=== PATIENT | male | born 1975 | race Caucasian/White ===

== ENCOUNTER 2020-03-07 09:30 | Outpatient (RCR) | payer OTHER, SELFPAY ==
--- NOTE | 2020-03-01 11:47 | PM.EVENT ---
Event Note Date of Service: 03/01/20 Event Note: 02/26/20: TC from pt, mother is assisting him in SSDI appeal. Pt reports mother was told that Orestes Juniorjoselopatricia from disability told her that he was denied as tech writer put a moderate quantifier on his diagnosis vs a severe quantifier. MRI is completed. 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 Pt is struggling with use of hands-unable to open or close. Dry Dip Worker made a call to [facility] [phone]. They can offer pt an appt for a second opinion for disability determination. They do accept [employer]. Information given to pt so he may schedule an appointment so his appeal may move forward.
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
== END 2020-04-14 23:55 | disposition home or self-care (01) ==
LOC: HO.PAOS 09:30
PROVIDERS: Visit Provider Clinical Nurse Specialist Psychiatric/Mental Health, Adult
DX: F31.4 Bipolar disorder, current episode depressed, severe, without psychotic features (principal); F42.9 Obsessive-compulsive disorder, unspecified; F43.10 Post-traumatic stress disorder, unspecified; Z72.89 Other problems related to lifestyle
CPT/HCPCS: 99204

== ENCOUNTER 2020-03-14 13:45 | Outpatient (RCR) | payer OTHER, SELFPAY | END 2020-03-24 23:55 | disposition home or self-care (01) | LOC: HO.PAOS 13:45 | PROVIDERS: Visit Provider Psychologist | DX: F31.9 Bipolar disorder, unspecified (principal); Z86.59 Personal history of other mental and behavioral disorders | CPT/HCPCS: 90834 ==

== ENCOUNTER 2024-08-26 09:51 | Outpatient (AMB) | payer OTHER, SELFPAY ==
--- NOTE | 2024-08-26 09:52 | A.OFFVIS_ITS ---
Vital Signs 08/26/24 10:08 Height 6 ft 6 in Weight 246 lb BMI 28.4 BP 122/71 Blood Pressure Location Rt brachial Position Sitting Pulse 98 Intake Visit Reasons: infected cyst above eye brow Intake Note: Patient being seen today as urgent appointment for abscess above Lt eyebrow. Treated by [facility] MD in [place] with a course of Doxycycline. Patient c/o: site has improved but would like to have cyst completely excised to prevent recurrence. Reports prone to cysts. Has had cyst removed from tail bone. Currently not on any meds but declined removing meds from hx. Color Receiver Required: No Accompanied by: Self / Same As Patient Allergies cat dander [CATS] Allergy (Unknown, Unverified 08/26/24 09:59) unknown Rabbit [RABBITS] Allergy (Unknown, Unverified 08/26/24 09:59) unknown oxcarbazepine [From TRILEPTAL] Adverse Reaction (Intermediate, Unverified 08/26/24 09:59) joint and muscle pain DUST Allergy (Unknown, Uncoded 08/26/24 09:59) unknown Medication List - Last Reconciled 08/26/24 by Kam Szymanski MD fluvoxamine 100 mg PO BEDTIME hydroxyzine pamoate (Vistaril) 50 - 100 mg (1 - 2 x 50 mg) PO TID PRN 30 days lamotrigine (Lamictal) 25 mg PO DAILY 30 days lamotrigine (Lamictal) 100 mg PO DAILY HPI HPI infected cyst above eye brow: Details: 48-year-old male referred for a cyst on the forehead. He says he has had this for about 4 months. However, he had good through the urgent care about 3 weeks ago because this became swollen and very tender. He was started on antibiotics which helped a lot He says that he wants this cyst removed because of this problem. He has no primary care physician. He states that he sees a therapist for his bipolar disorder. He says he does not take any medications at the all although his records show that he is on Lamictal and Vistaril. [facility], [facility] Medical History (Updated 08/26/24 @ 10:13 by Kam Szymanski MD) Epidermal cyst of face Adenoids, hypertrophy Pilonidal cyst of cleft PTSD (post-traumatic stress disorder) Alcohol use disorder Pilonidal cyst Bilateral rotator cuff dysfunction Obsessive compulsive disorder Bipolar affective disorder, depressed, severe Bilateral hand numbness Bilateral hand pain Bilateral knee pain Degenerative disc disease at L5-S1 level Injury of left shoulder Back pain Nerve pain TBI (traumatic brain injury) Pilonidal cyst Asthma Lyme disease Asthma LVH (left ventricular hypertrophy) Family History Father Basal cell carcinoma Social History Patient Tobacco Use Status: Current someday Tobacco user Cigarettes Per Day: 20 Substance Use Type: Marijuana Review of Systems Const Denies chills and Denies fever(s) Card Denies chest pain, Denies dyspnea and Denies dyspnea on exertion Resp Denies cough, Denies dyspnea and Denies dyspnea on exertion GI Denies hematochezia and Denies change in bowel habits Denies hematuria and Denies difficulty urinating Musc Denies back pain and Denies limited range of motion Neuro Denies focal weakness and Denies convulsions Psych Denies depression and Denies mood swings Physical Exam Const General: comfortable and no acute distress Orientation/consciousness: patient oriented x3 HEENT Other: Cystic induration on the forehead about 1.2 cm in diameter Neck Neck: Yes no lymphadenopathy Resp Auscultation: clear to auscultation bilaterally Cardio Rhythm: regular rhythm GI Palpation (GI): Soft to palpation, nontender and no guarding Neuro General: patient oriented x3 Assessment & Plan Assessment & Plan (1) Epidermal cyst of face: Code(s): L72.0 - Epidermal cyst Category: Medical Plan He wants this removed. I explained to him the technique of excision of the cyst under local anesthesia. I reviewed the risks including but not limited to bleeding and infections, as well as the benefits and alternatives. He understands and wants to proceed. This will be done in the office on his next visit. Coding Level of Care Code New Pt Level 3 (01678) Diagnoses Epidermal cyst of face L72.0
[2024-08-26 10:08] VITALS: BP 122/71; PULSE 98; BMI 28.4
== END 2024-08-26 10:10 | disposition home or self-care (01) ==
LOC: HO.HGS 09:52
PROVIDERS: PCP Internal Medicine; Visit Provider Surgery
DX: L72.0 Epidermal cyst (principal)
CPT/HCPCS: 99203

== ENCOUNTER → 2024-08-26 09:51 | Outpatient (BNVA) | payer OTHER, SELFPAY | PROVIDERS: PCP Internal Medicine; Visit Provider Surgery | DX: L72.0 Epidermal cyst (principal) | CPT/HCPCS: 99202 ==

== ENCOUNTER 2024-10-28 08:54 | Outpatient (REF) | payer OTHER, SELFPAY | END 2024-10-28 08:55 | disposition home or self-care (01) | LOC: HO.LNP 08:54 | PROVIDERS: PCP Family Medicine; Visit Provider Surgery | DX: L72.0 Epidermal cyst (principal) | CPT/HCPCS: 11441; 11442; 88304; 99211 ==

== ENCOUNTER 2024-10-28 08:54 | Outpatient (AMB) | payer OTHER, SELFPAY ==
--- NOTE | 2024-10-28 09:19 | A.OFFVIS_ITS ---
Vital Signs 10/28/24 09:20 Height 6 ft 6 in Weight 242 lb BMI 28.0 BP 134/81 Blood Pressure Location Rt brachial Position Sitting Pulse 82 Intake Visit Reasons: removal cyst forehead Intake Note: Patient here for excision of cyst on forehead. Grain Cleaner And Transfer Operator Required: No Accompanied by: Self / Same As Patient Allergies cat dander (CATS) Allergy (Unknown, Unverified 10/28/24 09:20) unknown Rabbit (RABBITS) Allergy (Unknown, Unverified 10/28/24 09:20) unknown oxcarbazepine (From TRILEPTAL) Adverse Reaction (Intermediate, Unverified 10/28/24 09:20) joint and muscle pain DUST Allergy (Unknown, Uncoded 10/28/24 09:20) unknown HPI HPI removal cyst forehead: Details: He is here for excision of a cyst from the forehead. [facility] Medical History (Updated 08/26/24 @ 10:13 by Kam Szymanski MD) Epidermal cyst of face Adenoids, hypertrophy Pilonidal cyst of cleft PTSD (post-traumatic stress disorder) Alcohol use disorder Pilonidal cyst Bilateral rotator cuff dysfunction Obsessive compulsive disorder Bipolar affective disorder, depressed, severe Bilateral hand numbness Bilateral hand pain Bilateral knee pain Degenerative disc disease at L5-S1 level Injury of left shoulder Back pain Nerve pain TBI (traumatic brain injury) Pilonidal cyst Asthma Lyme disease Asthma LVH (left ventricular hypertrophy) Family History Father Basal cell carcinoma Social History Patient Tobacco Use Status: Current someday Tobacco user Cigarettes Per Day: 20 Substance Use Type: Marijuana Physical Exam Vital Signs: Last Vital Signs Pulse 82 10/28/24 09:20 BP 134/81 10/28/24 09:20 BMI result Body Mass Index 28.0 Office Procedures Excision Details: He was in reclining position. The area of the cyst on the forehead was prepped and draped. Lidocaine 1% was used for local anesthesia. I made an elliptical incision of the skin surrounding the cyst with a blade 15. And this was carried down through the full-thickness of the skin and subcutaneous fat to excise the entire cyst intact. The cyst was about 1 cm in diameter. The incision was closed with full-thickness nylon 5 0 simple interrupted sutures. Dressings were applied. The procedure was completed. He tolerated procedure well. There were no immediate complications. [id number] face/ear/eyelid/nose/lip/mucous membrane 0.6cm-1cm Procedure code (CPT) selection complete Assessment & Plan Assessment & Plan (1) Epidermal cyst of face: Code(s): L72.0 - Epidermal cyst Category: Medical Plan: Excision was done in the office. He tolerated procedure well. He was given wound care instructions and will be seen for removal sutures next week. Coding Level of Care Code Procedure Only Diagnoses Epidermal cyst of face L72.0 CPT Codes Face/Ear/Eyelid/Nose/Lip/Mucous Membrane - CPT: 65047-Pvuhjcvp face/ear/eyelid/nose/lip/mucous membrane 0.6cm-1cm ([id number])
[2024-10-28 09:20] VITALS: BP 134/81; PULSE 82; BMI 28.0
== END 2024-10-28 09:41 | disposition home or self-care (01) ==
LOC: HO.HGS 08:55
PROVIDERS: PCP Family Medicine; Visit Provider Surgery
DX: L72.0 Epidermal cyst (principal)
CPT/HCPCS: 11442

== ENCOUNTER 2024-11-04 08:46 | Outpatient (AMB) | payer OTHER, SELFPAY ==
[2024-11-04 08:58] VITALS: BP 131/76; PULSE 86; BMI 27.7
--- NOTE | 2024-11-04 08:58 | MHC.OFFVIS ---
Vital Signs 11/04/24 08:58 Height 6 ft 6 in Weight 240 lb BMI 27.7 BP 131/76 Blood Pressure Location Rt brachial Position Sitting Pulse 86 Intake Visit Reasons: s/p cyst removal forehead Intake Note: Patient here s/p cyst excision on forehead. Reports incision healing well. Patient c/o: 3 sutures removed without incident. Obstetrics Gyn Physician Required: No Accompanied by: Self / Same As Patient Allergies cat dander (CATS) Allergy (Unknown, Unverified 11/04/24 08:59) unknown Rabbit (RABBITS) Allergy (Unknown, Unverified 11/04/24 08:59) unknown oxcarbazepine (From TRILEPTAL) Adverse Reaction (Intermediate, Unverified 11/04/24 08:59) joint and muscle pain DUST Allergy (Unknown, Uncoded 11/04/24 08:59) unknown HPI HPI s/p cyst removal forehead: Details: He underwent excision of a cyst from the forehead under local anesthesia last 10/28/2024. He tolerated the procedure well. He says he doing well and denies complaints. [facility] Medical History Epidermal cyst of face Adenoids, hypertrophy Pilonidal cyst of hugo cleft PTSD (post-traumatic stress disorder) Alcohol use disorder Pilonidal cyst Bilateral rotator cuff dysfunction Obsessive compulsive disorder Bipolar affective disorder, depressed, severe Bilateral hand numbness Bilateral hand pain Bilateral knee pain Degenerative disc disease at L5-S1 level Injury of left shoulder Back pain Nerve pain TBI (traumatic brain injury) Pilonidal cyst Asthma Lyme disease Asthma LVH (left ventricular hypertrophy) Surgical History Hx of surgical procedure (10/28/24) Family History Father Basal cell carcinoma Social History Patient Tobacco Use Status: Current someday Tobacco user Cigarettes Per Day: 20 Substance Use Type: Marijuana Review of Systems Const Denies chills and Denies fever(s) Physical Exam Vital Signs: Last Vital Signs Pulse 86 11/04/24 08:58 BP 131/76 11/04/24 08:58 BMI result Body Mass Index 27.7 Const General: comfortable and no acute distress HEENT Other: Excision site in the forwarded is well healed, not infected, sutures in place Assessment & Plan Assessment & Plan (1) Epidermal cyst of face: Code(s): L72.0 - Epidermal cyst Category: Medical Plan: Status post excision. The incision is well healed. His sutures were removed His path report shows an epidermal inclusion cyst. He can follow up on a p.r.n. basis Coding Level of Care Code Global (91349) Diagnoses Epidermal cyst of face L72.0
== END 2024-11-04 09:01 | disposition home or self-care (01) ==
LOC: HO.HGS 08:47
PROVIDERS: PCP Family Medicine; Visit Provider Surgery
DX: L72.0 Epidermal cyst (principal)
CPT/HCPCS: 99024

== ENCOUNTER → 2024-11-04 08:46 | Outpatient (BNVA) | payer OTHER, SELFPAY | PROVIDERS: PCP Family Medicine; Visit Provider Surgery | DX: Z09 Encounter for follow-up examination after completed treatment for conditions other than malignant neoplasm (principal); Z98.890 Other specified postprocedural states | CPT/HCPCS: 99212 ==